=== PATIENT | male | born 1980 | race Caucasian/White ===

== ENCOUNTER 2018-01-13 17:18 | Emergency (ER) | payer MEDICAID ==
[~2018-01-13] VITALS: Ht 182.9 cm; Wt 90.0 kg
[2018-01-13] MEDS ORDERED: HYDROCODONE/ACETAMINOPHEN 5-325 MG TABLET PO ONE (20:15)
[2018-01-13] MEDS ORDERED: LIDOCAINE HCL/PF 1% 2 ML VIAL IM ONE (20:15)
[2018-01-13] MEDS ORDERED: IBUPROFEN 800 MG TABLET PO ONE (20:15)
[2018-01-13] MEDS ORDERED: CefTRIAXone SODIUM 1 GM/VIAL IM ONE (20:15)
[2018-01-13 22:00] VITALS: BP 121/81
== END 2018-01-13 22:54 | disposition home or self-care (01) ==
LOC: EMS 17:19
DX: H60.92 Unspecified otitis externa, left ear (principal); F12.90 Cannabis use, unspecified, uncomplicated
CPT/HCPCS: 96372; 99283; J0696; J3490